=== PATIENT | female | born 1990 | race Caucasian/White ===

== ENCOUNTER 2024-04-29 08:41 | Emergency (ER) | payer OTHER, MEDICAID ==
[2024-04-29] MEDS: cefTRIAXone 500 MG, Lidocaine 1% 1 ML IM ONE (10:50)
[2024-04-29] MEDS: metroNIDAZOLE 250 MG Tab PO ONE (10:51)
[2024-04-29] MEDS: Azithromycin 250 MG Tab PO ONE (10:51)
== END 2024-04-29 11:32 | disposition home or self-care (01) ==
LOC: JP.ED 08:41
DX: T74.21XA Adult sexual abuse, confirmed, initial encounter (principal); I10 Essential (primary) hypertension; F17.210 Nicotine dependence, cigarettes, uncomplicated; Z88.5 Allergy status to narcotic agent; Z79.899 Other long term (current) drug therapy; Y07.9 Unspecified perpetrator of maltreatment and neglect
CPT/HCPCS: 96372; 99284; A9270; J0696

== ENCOUNTER 2024-06-04 09:26 | Emergency (ER) | payer MEDICAID ==
[2024-06-04] MEDS ORDERED: Morphine 4 MG/ML Syringe IVPUSH PRN (09:32)
[2024-06-04] MEDS ORDERED: Nitroglycerin 0.4 MG Tab.SL SL PRN (09:32)
[2024-06-04] MEDS ORDERED: Sodium Chloride 0.9% 10 ML Syringe FLUSH PRN (09:32)
[2024-06-04 09:45] LABS: BASOPHILS ABSOLUTE AUTO 0.03 K/uL (0.00-0.10); BASOPHILS PERCENT AUTO 0.2 % (0.1-1.3); EOSINOPHILS ABSOLUTE AUTO 0.22 K/uL (0.00-0.40); EOSINOPHILS PERCENT AUTO 1.6 % (0.0-5.4); HEMATOCRIT 44.1 % (34.3-46.0); HEMOGLOBIN 15.8 g/dL (11.2-15.5); IMMATURE GRAN ABSOLUTE AUTO 0.07 K/uL (0.00-0.23); IMMATURE GRAN PERCENT AUTO 0.5 % (0.0-0.7); LYMPHOCYTES ABSOLUTE AUTO 1.62 K/uL (0.8-3.3); MEAN CORPUSCULAR HEMOGLOBIN 33.5 pg (31.6-35.5); MEAN CORPUSCULAR HGB CONC 35.8 g/dL (31.6-35.5); MEAN CORPUSCULAR VOLUME 93.6 fL (81.4-99.0); MONOCYTES ABSOLUTE AUTO 1.21 K/uL (0.20-0.90); NEUTROPHILS ABSOLUTE AUTO 10.33 K/uL (1.0-7.6); NEUTROPHILS PERCENT AUTO 76.7 % (40.0-78.1); PLATELET COUNT,PLT 192 K/uL (130-375); RED BLOOD CELL COUNT 4.71 M/uL (3.77-5.24); WHITE BLOOD CELL COUNT,WBC 13.5 K/uL (3.2-11.0)
[2024-06-04] MEDS: Aspirin 81 MG Tab.Chew PO ONE (10:07)
[2024-06-04 10:09] LABS: A/G RATIO 0.9 (1.2-2.2); ALANINE AMINOTRANSFERASE,ALT 18 U/L (12-78); ALBUMIN 3.7 g/dL (3.4-5.0); ALKALINE PHOSPHATASE 88 U/L (46-116); ASPARTATE AMNIOTRANSFERASE,AST 22 U/L (15-37); BILIRUBIN TOTAL 1.1 mg/dL (0.2-1.0); BLOOD UREA NITROGEN,BUN 23 mg/dL (7-18); CALCIUM 11.2 mg/dL (8.5-10.1); CARBON DIOXIDE,CO2 28 mmol/L (21-32); CHLORIDE,CL 97 mmol/L (100-108); CREATININE 1.1 mg/dL (0.6-1.0); EST CRCL DRUG DOSING (CG) 60.07 mL/min; ESTIMATED GFR 68 mL/min (>60); GLUCOSE RANDOM 136 mg/dL (74-106); POTASSIUM,K 3.5 mmol/L (3.6-5.2); SODIUM,NA 134 mmol/L (140-148); TROPONIN I HIGH SENSITIVITY 16.7 pg/mL (<=60.3)
[2024-06-04 10:10] LABS: ANION GAP 12.5 mmol/L (5.0-14.0)
[2024-06-04] MEDS: Iopamidol 755 Mg/ML 100 ML Bottle IV ONE (10:31)
[2024-06-04] MEDS: Sodium Chloride 0.9% 100 ML IV ONE (10:31)
[2024-06-04] MEDS: Sodium Chloride 0.9% 10 ML Syringe FLUSH ONE (10:31)
[2024-06-04] MEDS: Labetalol 20 MG/4 ML Syringe IVPUSH ONE ×2 (11:01→11:17)
[2024-06-04] MEDS: Sodium Chloride 0.9% 1,000 ML IV SCH (11:45)
[2024-06-04] MEDS: Morphine 4 MG/ML Syringe IVPUSH PRN (12:33)
[2024-06-04] MEDS: Morphine 4 MG/ML Syringe ONE (12:37)
[2024-06-04] MEDS: Enalaprilat 1.25 MG/ML SDV IVPUSH ONE (12:54)
== END 2024-06-04 13:03 ==
LOC: JP.ED 09:26
DX: I71.03 Dissection of thoracoabdominal aorta (principal); I10 Essential (primary) hypertension; F17.210 Nicotine dependence, cigarettes, uncomplicated; Z88.5 Allergy status to narcotic agent; Z79.899 Other long term (current) drug therapy
CPT/HCPCS: 36415; 71275; 74174; 80053; 83605; 84484; 85025; 93005; 96365; 96375; 99285; A9270; J1920; J2270; J3490; Q9967